=== PATIENT | female | born 1965 | race Caucasian/White ===

== ENCOUNTER 2018-06-16 12:59 | Outpatient (REF) | payer OTHER, SELFPAY ==
[2018-06-16 22:05] LABS: Anion Gap 11.5 mmol/L (3-11); BUN 13 mg/dL (7-18); CO2 26.5 mmol/L (21.0-32.0); CREATININE 0.88 mg/dL (0.55-1.02); Calcium 8.4 mg/dL (8.5-10.1); Chloride 102 mmol/L (98-107); Glucose 90 mg/dL (70-100); Sodium 140 mmol/L (136-145); TSH (W/Ref FT4) 1.65 uIU/mL (0.358-3.74)
== END 2018-06-16 13:19 ==
LOC: NCHCN 12:59
PROVIDERS: PCP Internal Medicine; Visit Provider Internal Medicine
DX: I10 Essential (primary) hypertension (principal); J06.9 Acute upper respiratory infection, unspecified; R22.2 Localized swelling, mass and lump, trunk; E66.9 Obesity, unspecified
CPT/HCPCS: 80048; 84443

== ENCOUNTER 2024-03-26 16:55 | Outpatient (REF) | payer OTHER, SELFPAY ==
[2024-03-26 22:12] LABS: HCT 40.8 % (36.0-46.0); HGB 13.7 g/dL (11.2-15.7); MCH 32.6 pg (27.0-33.0); MCHC 33.6 % (32.0-36.0); MCV 97 fL (80-95); MPV 9.3 fL (8.0-11.0); Platelet Count 269 10^3/uL (130-400); RDW 13.3 % (11.7-14.6); RDW-SD 47.6 fL; WBC 6.44 10^3/uL (4.4-10.8)
[2024-03-26 22:30] LABS: ALT 37 U/L (14-59); AST 30 U/L (15-37); Albumin 3.3 g/dL (3.4-5.0); Alkaline Phosphatase 83 U/L (46-116); Anion Gap 12.6 mmol/L (3-11); BUN 11 mg/dL (7-18); Bilirubin, Total 0.29 mg/dL (0.2-1.0); CO2 23.4 mmol/L (21.0-32.0); CREATININE 0.9 mg/dL (0.55-1.02); Calcium 8.5 mg/dL (8.5-10.1); Calculated LDL 90 mg/dL (<100); Chloride 104 mmol/L (98-107); Cholesterol 189 mg/dL (<200); Estimated GFR 73.64 (mL/min/1.73m2); Glucose 108 mg/dL (74-106); HDL Cholesterol 73 mg/dL (40-60); Potassium 3.9 mmol/L (3.5-5.1); Sodium 140 mmol/L (136-145); TSH 1.78 uIU/Ml (0.36-3.74); Total Protein 6.8 g/dL (6.4-8.2); Triglyceride 134 mg/dL (<150)
[2024-03-26 22:33] LABS: Hemoglobin A1C 5.6 % (<5.7)
== END 2024-03-26 16:56 | disposition home or self-care (01) ==
LOC: NCHCN 16:55
PROVIDERS: PCP Internal Medicine; Visit Provider Internal Medicine
DX: I10 Essential (primary) hypertension (principal); R53.83 Other fatigue; R73.9 Hyperglycemia, unspecified; E66.9 Obesity, unspecified
CPT/HCPCS: 80053; 80061; 85027; 83036; 84443

== ENCOUNTER → 2024-04-06 00:11 | Outpatient (CLI) | payer OTHER, SELFPAY ==
--- NOTE | 2024-04-06 08:30 | DI.US_ITS ---
APPROVED REPORT EXAM: Comprehensive 2D, Doppler, and color-flow Echocardiogram Patient Location: Out-Patient Relief Cook: Adelaide Esquivel RDCS (AE) Indications: Family HX of Cardiomyopathy Other Information Study Quality: Adequate Conclusion Normal left ventricular wall thickness and chamber size. Ejection fraction is 57%. Wall motion is n ormal Normal right ventricular size and function Both atria are normal in size There is no structural or hemodynamically significant valvular disease Ascending aorta measures 3.44 cm Wall motion Left Ventricle The left ventricle is normal size. The left ventricular systolic function is normal. The left ventric ular ejection fraction is within the normal range. There is normal left ventricular wall thickness. T here is normal LV segmental wall motion. There is no ventricular septal defect visualized. LVEF is 57 %. Right Ventricle The right ventricle is normal size. The right ventricular systolic function is normal. Atria The left atrium size is normal. The right atrium size is normal. The interatrial septum is intact wit h no evidence for an atrial septal defect. Aortic Valve The aortic valve is normal in structure. Aortic valve is trileaflet. There is no aortic valvular sten osis. No aortic regurgitation is present. Mitral Valve The mitral valve is normal in structure. No evidence of mitral valve stenosis. Trace mitral regurgita tion. Tricuspid Valve The tricuspid valve is normal in structure. There is no tricuspid valve stenosis. Trace tricuspid reg urgitation. Unable to assess PA pressure. Pulmonic Valve The pulmonary valve is normal in structure. There is no pulmonic valvular stenosis. Trace pulmonic re gurgitation. Great Vessels The aortic root is normal in size. The ascending aorta is mildly dilated. Aortic arch is not well vis ualized. IVC is normal in size and collapses >50% with inspiration. Pericardium There is no pericardial effusion. 2D Dimensions IVSD d PLAX 0.90 cm F: 0.6-1.0 Ao Root d 3.15 cm F: 2.7 - 3.3 LVPW d PLAX 0.94 cm F: 0.6 - 1.0 Ao Asc Diam d 3.44 cm F: 2.3 - 3.1 LVID d PLAX 4.64 cm F: 3.8 - 5.2 LVDs 3.24 cm F: 2.2 - 3.5 LV EF Teichholz 57.7 % FS 30.30 % LV EDV (Teich) 99.5 mL LV ESV (Teich) 42.1 mL M-Mode TAPSE 2.15 cm (M/F) >1.7 Auto EF LV EDV A4C 95.9 mL LV EDV A2C 111.1 mL LV EDV BP 103.6 mL LV ESV A4C 41.3 mL LV ESV A2C 48.5 mL LV ESV BP 45.5 mL LVEF(%) A4C 57.0 % LVEF(%) A2C 56.3 % LVEF(%) BP 56.1 % LV SV A4C 54.6 ml LV SV A2C 62.6 ml LV SV BP 58.1 ml LV CO A4C 4.9 L/min LV CO A2C 5.3 L/min LV CO BP 5.1 L/min HR A4C 89.78 BPM HR A2C 85.11 BPM LV EDV Index (BP) LA Volume LA Length A4C 5.2 cm LA Length A2C 4.5 cm LA Area A4C s 16.05 cm2 LA Area A2C s 12.95 cm2 LA Vol A4C A-L 42.38 mL LA Vol A2C A-L 31.39 mL LA Vol Biplane A-L 38.9 mL LA Vol/BSA A4C A-L LA Vol/BSA A2C A-L LA Vol/BSA BP A-L 17.2 mL/m2 LA Vol A4C MOD 39.5 mL LA Vol A2C MOD 29.9 mL LA Vol BP MOD 36.2 mL RA Volume RA Area A4C 8.7 cm2 RA ESV A4C (A-L) 16.4mL RA Vol/BSA A4C A-L RA Length A4C 3.9 cm RA ESV A4C (MOD) 15.9mL LV Diastology MV E' lateral 0.099 (>0.1 m/s) Aortic Valve AoV Vmax 1.65 m/s LVOT Vmax 1.13 m/s AoV Peak Grad 10.9 mmHg LVOT Peak Grad 5.1 mmHg AoV Area (Vmax) 2.22 cm2 LVOT VTI 0.243 m AoV VTI 0.355 m LVOT Mean Grad 3.0 mmHg AoV Mean Ruddy. 1.15 m/s LVOT SV 78.95 mL AoV Mean Grad 6.0 mmHg LVOT Diam s 2.00 cm AoV Area (VTI) 2.22 cm2 AV Regurg Peak Gr. 10.92 mmHg Velocity Ratio 0.68 Pulmonary Valve PV Vmax 1.05 (0.5-1.5 m/s) RVOT Vmax 0.75 m/s PV Peak Grad 4.4 mmHg RVOT Peak Gr. 2.3 mmHg PV Mean Ruddy 0.77 m/s RVOT VTI 0.178 m PV Mean Grad 2.7 mmHg RVOT Mean Gr. 1.5 mmHg Tricuspid Valve RA Pressure 3.00 mmHg TV S' 0.11 m/s
== END ==
PROVIDERS: PCP Internal Medicine; Visit Provider Internal Medicine
DX: Z82.49 Family history of ischemic heart disease and other diseases of the circulatory system (principal)
CPT/HCPCS: 93306

== ENCOUNTER 2024-04-26 07:13 | Outpatient (CLI) | payer OTHER, SELFPAY ==
--- NOTE | 2024-04-26 12:50 | DI.MAMMO_ITS ---
Exam(s) MAMMO SCREENING EXAM: MAMMO SCREENING CLINICAL HISTORY: SCREENING,12.39 TECHNIQUE: Mammograms were interpreted according to the usual protocol including computer analysis w [employer] CAD system, tomosynthesis and C-view imaging. COMPARISON: 2008 FINDINGS: The breasts are composed of mainly fatty density , Breast Density category A. No suspicious masses or suspicious microcalcifications are seen. No skin thickening or abnormal axillary lymph nodes are seen. There has been no significant change from prior exams. IMPRESSION: BI-RADS Category 1, Negative mammogram Yearly screening mammography is recommended. Breast Density - Category A, fatty density. A negative radiographic report should not delay biopsy if a dominant or clinically suspicious mass is present. Up to ten percent of cancers are not identified on mammography. A negative report may reinforce clinical impression. Adenosis and dense breasts may obscure an underlying neoplasm. False positive reports average 6 to 10%. Patient will receive a letter notifying them of these results.
== END 2024-04-26 07:33 ==
LOC: DI 07:14
PROVIDERS: PCP Internal Medicine; Visit Provider Family Medicine
DX: Z12.31 Encounter for screening mammogram for malignant neoplasm of breast (principal)
CPT/HCPCS: 77063; 77067

== ENCOUNTER 2024-04-27 00:09 | Outpatient (CLI) | payer OTHER, SELFPAY ==
--- NOTE | 2024-04-27 07:20 | DI.RAD_ITS ---
Exam(s) XR HIP RT COMPLETE AP PELVIS EXAM: XR HIP RT COMPLETE AP PELVIS CLINICAL HISTORY: PAIN IN R HIP JOINT, M25.551. TECHNIQUE: 2D digital imaging was performed. Two views FINDINGS: BONES: No acute fracture is present. No bony destructive lesion is seen. JOINTS: No dislocation present. The hip joint spaces are maintained. Mild acetabular spurring bila terally. Mild degenerative changes of the SI joints. SOFT TISSUE: Normal. IMPRESSION: Mild degenerative changes. DATA REPOSITORY: RADIATION DOSE DELIVERED:
== END 2024-04-27 00:29 ==
LOC: DI 00:09
PROVIDERS: PCP Internal Medicine; Visit Provider Internal Medicine
DX: M25.551 Pain in right hip (principal)
CPT/HCPCS: 73502

== ENCOUNTER 2024-05-17 11:37 | Outpatient (CLI) | payer OTHER, SELFPAY ==
--- NOTE | 2024-05-17 12:28 | W.CARDEVENT ---
Date of service: 05/17/24 Time of Service: 12:28 Cardiac Event Recorder Referring Provider:: Monik Salcido Indications:: Palpitations Cardiac Event Note: This is a cardiac event monitor. Patient was monitored for 13 days and 19 hours Rhythm throughout was sinus with an average heart rate of 94. Minimum was 69, maximum 138 There were rare ventricular ectopic beats There were rare atrial premature beats. There was no atrial fibrillation, no high-grade AV block, no pauses greater than 3 seconds Symptoms were reported which corresponded to sinus rhythm and sinus tachycardia
== END 2024-05-17 11:38 | disposition home or self-care (01) ==
LOC: CARDOPNVT 11:37
PROVIDERS: PCP Internal Medicine; Visit Provider Internal Medicine Cardiovascular Disease
DX: R00.2 Palpitations (principal)
CPT/HCPCS: 93246